=== PATIENT | female | born 1930 | race African-American/Black ===

== ENCOUNTER 2019-09-28 22:06 | Inpatient (IN) ==
[2019-09-28] MEDS ORDERED: NOREPINEPHRINE 4 MG/4 ML VIAL IV ONE (22:22)
[2019-09-28] MEDS: NOREPINEPHRINE 8 MG in SODIUM CHLORIDE 0.9% 242 ML IV PRN (22:26)
[2019-09-28] MEDS ORDERED: PIPERACILLIN/TAZOBACTAM 3,375 MG in SODIUM CHLORIDE 0.9% 100 ML IV STA (22:36)
[2019-09-28] MEDS ORDERED: SODIUM CHLORIDE 0.9% 1,000 ML IV STA (22:36)
[2019-09-28 23:45] LABS: Basophils % 0.2 % (0.0-0.8); Eosinophils # 0.1 10*3/uL (0.0-0.87); Eosinophils % 0.7 % (0.00-10.9); Hematocrit 44.2 VOL% (35.7-47.0); Hemoglobin 12.7 GM/DL (12.0-16.0); Immature Granulocytes % 20.2 %; Immature Granulocytes Absolute 3.33 #; Lymphocytes # 6.1 10*3/uL (1.4-4.0); Lymphocytes % 36.9 % (21.3-54.2); Mean Corpuscular HGB Conc 28.7 GM/DL (32-36); Mean Corpuscular Volume 95.9 FL (87-102); Mean Platelet Volume 11.6 FL (9.6-12.0); Monocytes % 1.9 % (1.7-12.7); NRBC # 0.57 10*3/uL; Neutrophils % 40.1 % (38.7-73.9); Platelet Count 151 T/CUMM (130-400); Red Blood Count 4.61 MC/CUMM (3.8-5.5); Red Cell Distribution Width 15.3 % (9.3-17.3); White Blood Count 16.5 T/CUMM (4-12)
[2019-09-28 23:46] LABS: ABG Base Excess -21.9 MMOL/L (-2.5-2.5); ABG HCO3 9.1 MMOL/L (20-26); ABG Oxygen Saturation 90.2 % (95-100); ABG PCO2 56.6 MM HG (35-48); ABG TCO2 11.7 MMOL/L (23-27); Allen Test Positive; Pt O2 Delivery Device Ventilator
[2019-09-28 23:48] LABS: ABG PH 6.929 (7.35-7.45)
[2019-09-28 23:51] LABS: CKMB % 6.1 %
[2019-09-28 23:53] LABS: Troponin I 4.55 NG/ML (0.00-0.045)
[2019-09-29] MEDS ORDERED: SODIUM BICARBONATE 50 MEQ/50 ML VIAL IV STA (00:13)
[2019-09-29 00:32] LABS: Calcium 8.8 MG/DL (8.5-10.1)
[2019-09-29 00:33] LABS: Albumin 1.7 G/DL (3.4-5.0); Bilirubin,Total 0.6 MG/DL (0.2-1.0); Osmolality,Calculated 310.4 MOS/KG (273-304); Total Protein 6.5 G/DL (6.4-8.3)
[2019-09-29] MEDS ORDERED: SODIUM CHLORIDE 0.9% 1,000 ML IV STA (00:43)
[2019-09-29] MEDS ORDERED: ONDANSETRON 4 MG/2 ML VIAL IV PRN (01:43)
[2019-09-29] MEDS ORDERED: AZITHROMYCIN 250 MG TABLET NG ONE (01:43)
[2019-09-29] MEDS ORDERED: ACETAMINOPHEN 325 MG TABLET NG PRN (01:43)
[2019-09-29] MEDS ORDERED: HYDROXYCHLOROQUINE 200 MG TABLET NG SCH (01:43)
[2019-09-29] MEDS ORDERED: PANTOPRAZOLE 40 MG VIAL IV SCH (01:43)
[2019-09-29] MEDS ORDERED: SODIUM BICARB INJ 150 MEQ in STERILE WATER INJ 850 ML IV SCH (02:00)
[2019-09-29] MEDS ORDERED: LEVOFLOXACIN INJ 750 MG in PREMIX 1 EACH IV ONE (02:00)
[2019-09-29] MEDS: NOREPINEPHRINE 8 MG in SODIUM CHLORIDE 0.9% 242 ML IV PRN (02:00)
[2019-09-29 02:04] LABS: Ferritin 22252.9 ng/ml (8-252)
[2019-09-29 02:07] LABS: Atypical Lymphocytes Few; Band Neutrophils 2 % (0-10); Eosinophils 1 % (0-10); Lymphocytes 48 % (20-55); Metamyelocytes 1 %; Nucleated Red Blood Cells 1 (0-5); Reactive Lymphocytes Few; Segmented Neutrophils 47 % (50-85); Total Cells Counted 100
[2019-09-29 02:08] LABS: Platelet Estimate Adequate
[2019-09-29 02:09] LABS: Giant Platelets Few; Polychromasia Few
[2019-09-29] MEDS ORDERED: SODIUM BICARBONATE 50 MEQ/50 ML VIAL IV ONE (02:15)
[2019-09-29] MEDS ORDERED: EPINEPHrine 1 MG/10 ML SYRINGE ONE (02:15)
[2019-09-29] MEDS ORDERED: VANCOMYCIN INJ 1,000 MG in SODIUM CHLORIDE 0.9% 250 ML IV SCH (05:00)
[2019-09-29 05:13] VITALS: BP 137/76
[2019-09-29] MEDS ORDERED: ETOMIDATE 20 MG/10 ML VIAL IV ONE (05:44)
[2019-09-29] MEDS ORDERED: ZINC SULFATE 220 MG CAPSULE NG SCH (09:00)
[2019-09-29] MEDS ORDERED: PIPERACILLIN/TAZOBACTAM 3,375 MG in SODIUM CHLORIDE 0.9% 100 ML IV SCH (12:00)
[2019-09-30] MEDS ORDERED: AZITHROMYCIN 250 MG TABLET NG SCH (09:00)
[2019-09-30] MEDS ORDERED: HYDROXYCHLOROQUINE 200 MG TABLET PO SCH (09:00)
[2019-10-01] MEDS ORDERED: LEVOFLOXACIN INJ 500 MG in PREMIX 1 EACH IV SCH (02:00)
== END 2019-09-29 02:25 | disposition expired | DRG 296 ==
LOC: EDBD → EDUNIT# → N.ED 22:06 → N.EDINP 09-29 00:48 → N.ICU 09-29 01:29
PROVIDERS: ADMIT Internal Medicine; ATTEND Internal Medicine